=== PATIENT | male | born 1945 | race Caucasian/White ===

== ENCOUNTER 2022-02-09 13:24 | Emergency (ER) | payer OTHER, MEDICARE ==
[2022-02-09 13:43] VITALS: BP 146/86; PULSE 68
== END 2022-02-09 15:00 | disposition home or self-care (01) ==
LOC: JP.ED 13:24
DX: M17.12 Unilateral primary osteoarthritis, left knee (principal); I10 Essential (primary) hypertension
CPT/HCPCS: 73562-26-LT; 73562-LT; 99283